=== PATIENT | female | born 1990 | race African-American/Black ===

== ENCOUNTER 2017-08-13 16:25 | Emergency (ER) | payer SELFPAY | END 2017-08-13 17:00 | disposition left against medical advice (07) | LOC: ER 16:53 | DX: R21 Rash and other nonspecific skin eruption (principal); Z53.21 Procedure and treatment not carried out due to patient leaving prior to being seen by health care provider ==

== ENCOUNTER 2019-06-11 05:54 | Emergency (ER) | payer OTHER ==
[~2019-06-11] VITALS: Ht 167.6 cm; Wt 82.0 kg
[2019-06-11] MEDS ORDERED: KETOROLAC 30MG/ML VIAL IM ONE (06:30)
[2019-06-11] MEDS ORDERED: METHOCARBAMOL 500MG TABLET PO ONE (07:30)
[2019-06-11 08:26] VITALS: BP 119/80
[2019-06-11] MEDS ORDERED: HYDROCODONE/ACETAMINOPHEN 5/325MG TABLET PO ONE (08:30)
== END 2019-06-11 08:25 | disposition home or self-care (01) ==
LOC: ER 05:54
DX: M25.511 Pain in right shoulder (principal); F12.10 Cannabis abuse, uncomplicated; Z88.0 Allergy status to penicillin
CPT/HCPCS: 73030; 96372; 99283; J1885

== ENCOUNTER 2020-05-17 08:41 | Emergency (ER) | payer OTHER ==
[~2020-05-17] VITALS: Ht 170.2 cm; Wt 86.0 kg
[2020-05-17 09:43] VITALS: BP 129/82
== END 2020-05-17 09:44 | disposition home or self-care (01) ==
LOC: ER 08:41
DX: T78.1XXA Other adverse food reactions, not elsewhere classified, initial encounter (principal); R21 Rash and other nonspecific skin eruption; F12.10 Cannabis abuse, uncomplicated; Z88.0 Allergy status to penicillin; X58.XXXA Exposure to other specified factors, initial encounter
CPT/HCPCS: 99283